=== PATIENT | female | born 1995 | race Caucasian/White ===

== ENCOUNTER 2024-11-23 08:03 | Outpatient (CLI) | payer BC ==
[2024-11-23 09:26] VITALS: BP 133/87; PULSE 106; RESP 16; TEMP 98.4
--- NOTE | 2025-01-06 20:19 | P.MSEPDOC ---
Presenting Problems - Arrival Data Date of Arrival on Unit: 11/23/24 Time of Arrival on Unit: 08:04 Mode of Transport: Ambulatory - Complaint OB-Reason for Admission/Chief Complaint: Decreased Movement Medical History - Information : 1 Para: 0 Term: 0 : 0 Abortions: Spontaneous or Elective: 0 Number of Living Children: 0 - Gestational Age Gestational Age by JERZY (wks/days): 34 Weeks and 1 Days Review of Systems - Review of Systems Constitutional: No problems Breast: No problems ENT: No problems Cardiovascular: No problems Respiratory: No problems Gastrointestinal: No problems Genitourinary: No problems Musculoskeletal: No problems Neurological: No problems Skin: No problems Vital Signs - Temperature Temperature: 98.4 F Temperature Source: Oral - Pulse Right Brachial Pulse Rate: 106 - Respirations Respiratory Rate: 16 Oxygen Delivery Method: Room Air - Blood Pressure Right Arm Blood Pressure: 133/87 Blood Pressure Mean: 102 Blood Pressure Source: Automatic Cuff Medical Screen Scoring - Cervical Exam Membranes: Intact - Uterine Contractions Frequency From (mins): 0 Frequency To (mins): 0 Duration From (seconds): 0 Duration To (seconds): 0 Resting: Soft to palpation - Assessment - Baby A Baseline FHR: 130 Heart Rate - NICHD Category: Category I (Normal) NST: Reactive Physician Notification - Physician Notified Physician Notified Date: 11/23/24 Physician Notified Time: 18:16 New Order Received: Yes - Notification Comment Comment: heart tones 130's when patient arrived V/S obtained and NST IN PROGRESS. dR Lira AT PATIENTS BEDSIDE @ 0816 AND ORDERS RECEIVED TO WATCH PATIENT FOR 1 HOUR THAN JANUARY D/C IF REACTIVE NST Maternal Triage Index - Prompt/Priority 3 Prompt Priority 3: Yes Criteria Met for Priority 3: patient arrived c/o decreased movement since last night. denies any complaints of bleeding or contractions and denies any c/o problems with this Disposition - Disposition OB Disposition: Discharge to home Discharge Date: 11/23/24 Discharge Time: 09:14 I agree with the RN Medical Screening Exam: Yes Case reviewed; plan agreed upon as documented in EMR&OBIX.: Yes Diagnosis: DECREASED MOVEMENTS, THIRD TRIMESTER, FETUS 1
== END 2024-11-23 09:14 | disposition home or self-care (01) ==
LOC: FBPOP 08:03
PROVIDERS: ATTEND Obstetrics & Gynecology Obstetrics
DX: O36.8131 Decreased fetal movements, third trimester, fetus 1 (principal); Z88.0 Allergy status to penicillin; Z88.1 Allergy status to other antibiotic agents; Z88.2 Allergy status to sulfonamides; Z3A.34 34 weeks gestation of pregnancy
CPT/HCPCS: 59025; 99213